=== PATIENT | female | born 1990 | race Caucasian/White ===

== ENCOUNTER → 2018-12-20 | Outpatient (REF) | payer OTHER ==
[2018-12-20 19:42] LABS: CHLAMYDIA DNA AMPLIFICATION NEGATIVE (NEGATIVE); GC DNA AMPLIFICATION NEGATIVE (NEGATIVE)
== END ==
LOC: M LAB REF 17:13
PROVIDERS: ATTEND Advanced Practice Midwife
DX: Z34.81 Encounter for supervision of other normal pregnancy, first trimester (principal); Z3A.00 Weeks of gestation of pregnancy not specified

== ENCOUNTER → 2019-02-03 | Outpatient (CLI) | payer OTHER ==
--- NOTE | 2019-02-03 14:41 | REP ---
OB ULTRASOUND: Real-time sonographic evaluation of the gravid uterus is performed. There is a single living intrauterine gestation. Estimated gestational age is 20 weeks 2 days based on today's ultrasound. EDC 06/21/2019. BPD 48 mm = 20 weeks 4 days, 57th percentile HC 174 mm = 19 weeks 6 days, 40th percentile AC 150 mm = 20 weeks 2 days, 50th percentile Femur length 33 mm = 20 weeks 3 days, 55th percentile HC/AC ratio 1.16 within normal range. Estimated weight 346 grams, 49th percentile. Cervix is closed and measures 5.3 cm in length. heart rate 141 beats per minute. SEEN/GROSSLY UNREMARKABLE Lateral ventricles Yes Posterior fossa No Upper lip Yes Four-chamber heart Yes LVOT Yes RVOT Yes Stomach Yes Cord insertion Yes Three vessel cord Yes Kidneys Yes Bladder Yes Spine Yes position: Vertex. Placenta: Anterior and grade 0 with no previa or abruption. Amniotic fluid: Within normal limits. Electronically Signed by Tre Rod MD 02/03/2019 04:55 P
== END ==
LOC: M RAD 12:50
PROVIDERS: ATTEND Advanced Practice Midwife
DX: Z34.82 Encounter for supervision of other normal pregnancy, second trimester (principal); Z3A.20 20 weeks gestation of pregnancy

== ENCOUNTER → 2019-02-21 | Outpatient (CLI) | payer BC ==
--- NOTE | 2019-02-21 19:12 | REP ---
Clinical: Anatomical evaluation. Comparison: 02/03/2019 . Findings: Examination demonstrates a single live intrauterine in cephalic presentation. motion is identified by technologist. Placenta is noted anterior and grade zero without evidence for placenta previa or abruption. Amniotic fluid volume is normal. Cervix measures 3.5 cm in length and appears closed. No evidence for nuchal cord. Gestational age by LMP 22 weeks 4 days with GRACE 06/23/2019 . Gestational age by current measurements 22 weeks 4 days with GRACE 06/23/2019 . FHR equals 149 beats per minute. Estimated weight 513 grams ( 43rd percentile). Anatomical assessment demonstrates normal structures including cerebellum/posterior fossa. Impression: Single live intrauterine in cephalic presentation demonstrating appropriate interval growth. 2. In conjunction with prior examination anatomical assessment is complete and normal. Electronically Signed by Aries Campos MD 02/21/2019 07:03 P
== END ==
LOC: M RAD 17:06
PROVIDERS: ATTEND Advanced Practice Midwife
DX: Z34.82 Encounter for supervision of other normal pregnancy, second trimester (principal); Z36.89 Encounter for other specified antenatal screening; Z3A.22 22 weeks gestation of pregnancy

== ENCOUNTER → 2019-03-16 | Outpatient (CLI) | payer BC ==
[2019-03-16 17:59] LABS: HEMATOCRIT 39.7 % (36.0-47.0); HEMOGLOBIN 12.5 g/dl (12.0-15.5); MEAN CORPUSCULAR HEMOGLOBIN 30.3 pg (27.0-33.0); MEAN CORPUSCULAR HGB CONC 31.5 g/dl (32.0-36.5); MEAN CORPUSCULAR VOLUME 96.4 fl (80.0-96.0); PLATELET COUNT, AUTOMATED 200 10^3/uL (150-450); RED BLOOD COUNT 4.12 10^6/uL (4.00-5.40); WHITE BLOOD COUNT 9.6 10^3/uL (4.0-10.0)
== END ==
LOC: M PLALAB 12:44
PROVIDERS: ATTEND Advanced Practice Midwife
DX: Z34.82 Encounter for supervision of other normal pregnancy, second trimester (principal); Z3A.00 Weeks of gestation of pregnancy not specified

== ENCOUNTER → 2019-05-19 | Outpatient (REF) | payer BC | LOC: M SFHCWAGY 16:40 | PROVIDERS: ATTEND Advanced Practice Midwife | DX: Z34.93 Encounter for supervision of normal pregnancy, unspecified, third trimester (principal); Z3A.00 Weeks of gestation of pregnancy not specified ==

== ENCOUNTER 2019-06-22 22:43 | Inpatient (IN) | payer BC ==
[~2019-06-22] VITALS: Ht 162.6 cm; Wt 87.8 kg
[2019-06-22] MEDS ORDERED: PRENTAB9 PO (23:05)
[2019-06-22 23:10] VITALS: BP 120/87
[2019-06-22] MEDS ORDERED: LR 1,000 ML IV SCH (23:27)
[2019-06-22] MEDS ORDERED: OXYTOCIN DRIP 30 UNITS in IV 1 EA IV SCH (23:30)
--- NOTE | 2019-06-23 00:07 | HPEPDOC ---
Obstetrical History & Physical General Date of Admission History of Present Illness Yajaira is a 29 year old female at 40.0 weeks EGA with an GRACE of 06/22/2019 by LMP of 09/15/18 confirmed by first trimester ultrasound. She presents complaining of contractions that started around 8 PM and have been consistently 4 minutes apart and lasting for about a minute. She denies leakage of fluid or bloody discharge. She reports good movement. Age: 29 : 2 Term: 1 Pre-term: 0 Abortions: 0 Livin Care Care: Good Care Dating Final EDC: June 22, 2019 Past Medical History Past Obstetrical History : Past Obstetrical History: Primgravida (07/2010) Gestation: 41.1 Type of Delivery: Spontaneous Vaginal Del. Sex of : Female Weight of Infant (grams): 3685 Complications: No PRODUCTION EXPERT History: No pertinent history Past Medical History Surgical History: Denies/None Family History Family History HTN, thyroid Social History Marital Status: Family situation: Spouse/partner home Psychosocial History: No pertinent psych hx * Smoker: non-smoker Alcohol: Denies Drugs: denies Allergies Coded Allergies: No Known Allergies (Verified , 07/29/10) Medications Scheduled No.137/Iron/Folic Acd ( Vitamin Tablet) 1 Each Tablet, 1 TAB PO DAILY Physical Examination Physical Examination GENERAL: Alert and oriented times three. BREAST: . ABDOMEN: Gravid and non-tender to touch. FETUS: Is vertex (VTX) by sterile vaginal examination (SVE), fetus is vertex (VTX) by [place]. HEART RATE: Regular rate and rhythm. LUNGS: Clear to auscultation (CTA). EXTREMITIES: No edema. No clonus. Deep tendon reflexes (DTRs) +2. Vital Signs/I&O Vital Signs Date Time Temp Pulse Resp B/P (MAP) Pulse Ox O2 Delivery O2 Flow Rate FiO2 06/22/19 23:10 98 120/87 (98) 06/22/19 23:06 98.0 Pertinent Laboratoy Data Blood Type: A- RBC Antibody Screen: Negative HIV: Negative Hepatitis B: Negative Hepatitis C: Negative Rapid Plasma Reagin: Nonreactive Rubella: Nonreactive (equivocal) Chlamydia/Gonorrhea: Negative Group B Streptococcus: Negative Glucose Tolerance Test: 82 Other Ultrasounds 02/03/19: SIUP with EGA 20.2, Anterior and grade 0 placenta without previa or abruption. 02/21/19: Single live intrauterine in cephalic presentation demonstrating appropriate interval growth. In conjunction with prior examination anatomical assessment is complete and normal. Vaginal Examination Dilation: 4 cm Effacement: 80% Station: -2 Cervical Consistency: Soft Cervical Position: Posterior Presentation: Cephalic presentation Position: Vertex (occiput) Assessment Heart Rate (FHR): 150 Variability: Moderate Accelerations: Positive Decelerations: None Tocometer Contractions: Yes Frequency: every 3-7 min. Assessment/Plan Assessment Yajaira is a 29-year-old (G)2 para (P)1-0-0-1 at 40.0 weeks by LMP confirmed by first trimester ultrasound. Presents to Labor and Delivery (L&D) complaining of contractions. Plan Admit and orient. 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 Diet: Regular. Group B Streptococcus (GBS) negative. Labs and intravenous (IV) per unit protocol. Counseled on potential augmentation of labor with Pitocin. Anticipate normal spontaneous delivery (). C-S as appropriate. GME ATTESTATION GME ATTESTATION My faculty preceptor for this patient encounter was physically present during the encounter and was fully available. All aspects of the patient interview, examination, medical decision making process, and medical care plan development were reviewed and approved by the faculty preceptor. The faculty preceptor is aware and concurs with the plan as stated in the body of this note and will attest to such by his/her cosignature. POLLY KEVIN D.O. June 23, 2019 00:07
[2019-06-23 00:28] LABS: HEMATOCRIT 39.2 % (36.0-47.0); HEMOGLOBIN 12.9 g/dl (12.0-15.5); MEAN CORPUSCULAR HEMOGLOBIN 30.1 pg (27.0-33.0); MEAN CORPUSCULAR HGB CONC 32.9 g/dl (32.0-36.5); MEAN CORPUSCULAR VOLUME 91.4 fl (80.0-96.0); PLATELET COUNT, AUTOMATED 156 10^3/uL (150-450); RED BLOOD COUNT 4.29 10^6/uL (4.00-5.40)
[2019-06-23] MEDS ORDERED: BUTORPHANOL 2 MG/ML INJ (J0595) IV ONE (00:45)
[2019-06-23] MEDS ORDERED: PROMETHAZINE INJ 25 MG/ML VIAL (J2550) IV ONE (00:45)
--- NOTE | 2019-06-23 05:33 | IPNPDOC ---
Text Note Date of Service The patient was seen on 06/23/19. NOTE Subjective: Was able to rest some with Stadol and Phenergan. Feeling more discomfort with contractions and having an urge to push. Objective: General: uncomfortable Abdomen: gravid SVE: 6/90/-1 FHR: 140 bpm, mod variability, accels, no decels TOCO: ctx q3 minutes AROM with clear fluid Assessment: Yajaira is a 29-year-old (G)2 para (P)1-0-0-1 at 40.0 weeks by LMP confirmed by first trimester ultrasound. Presented to Labor and Delivery (L&D) 06/22/19 complaining of contractions. Plan: Stadol/phenergan for coping AROM with clear fluid Status Reassuring Anticipate Vaginal Delivery VS,Fishbone, I+O VS, Fishbone, I+O Laboratory Tests 06/23/19 00:23 Vital Signs Date Time Temp Pulse Resp B/P (MAP) Pulse Ox O2 Delivery O2 Flow Rate FiO2 06/23/19 02:19 20 06/22/19 23:10 98 120/87 (98) 06/22/19 23:06 98.0 GME ATTESTATION GME ATTESTATION My faculty preceptor for this patient encounter was physically present during the encounter and was fully available. All aspects of the patient interview, examination, medical decision making process, and medical care plan development were reviewed and approved by the faculty preceptor. The faculty preceptor is aware and concurs with the plan as stated in the body of this note and will attest to such by his/her cosignature. POLLY KEVIN D.O. June 23, 2019 05:33
[2019-06-23] MEDS ORDERED: OXYTOCIN 30 UNITS IN 0.9% NaCl 500ML IV BAG (J2590) As Ordered ONE (05:38)
[2019-06-23] MEDS ORDERED: IBUPROFEN 600 MG TAB PO PRN (06:45)
[2019-06-23] MEDS ORDERED: ACETAMINOPHEN TAB 650MG DOSE (2X325MG) PO PRN (06:45)
[2019-06-23] MEDS ORDERED: DOCUSATE SODIUM 100 MG CAP PO PRN (06:45)
[2019-06-23] MEDS ORDERED: OXYTOCIN DRIP 30 UNITS in IV 1 EA IV ONE (06:45)
[2019-06-23] MEDS ORDERED: IBUPROFEN 800 MG TAB PO PRN (06:45)
[2019-06-23] MEDS ORDERED: ONDANSETRON 4MG/2ML VIAL IV PRN (06:45)
[2019-06-23] MEDS ORDERED: RHOGAM 300 MCG (1500 IU) INJ (J2790) IM SCH (06:45)
[2019-06-23] MEDS ORDERED: DIBUCAINE 1% OINTMENT 30GM TOP PRN (06:45)
[2019-06-23] MEDS ORDERED: LIDOCAINE 1% MDV 20ML VIAL INFIL ONE (06:45)
[2019-06-23] MEDS ORDERED: METHYLERGONOVINE MALEATE 0.2 MG TAB PO PRN (06:45)
[2019-06-23] MEDS ORDERED: ACETAMINOPHEN 500 MG TAB PO PRN (06:45)
[2019-06-23] MEDS ORDERED: MEASLES,MUMPS,RUBELLA VACCINE INJ (MMR-II) (90707) SC SCH (06:45)
[2019-06-23] MEDS: PRENATAL VITAMINS CHEWABLE TABLET PO SCH (09:00)
[2019-06-23 10:30] VITALS: BP 125/77
[2019-06-23 18:00] VITALS: BP 109/67
[2019-06-24 05:53] VITALS: BP 113/75
--- NOTE | 2019-06-24 07:21 | IPNPDOC ---
Text Note Date of Service The patient was seen on 06/24/19. NOTE PP #1 Feels well. Adequate pain management. Voiding VSS, afebrile, normotensive Breasts soft, nipples intact Fundus firm, NT Lochia rubra scant without odor Perineum intact PP #1 Routine care. Anticipate D/C in am VS,Fishbone, I+O VS, Fishbone, I+O Vital Signs Date Time Temp Pulse Resp B/P (MAP) Pulse Ox O2 Delivery O2 Flow Rate FiO2 06/24/19 05:53 97.7 73 18 113/75 (88) I&O- Last 24 Hours up to 6 AM 06/24/19 06:00 Intake Total 900 ml Output Total 1100 ml Balance -200 ml Poonam Kaur CNM June 24, 2019 07:21
[2019-06-24] MEDS: PRENATAL VITAMINS CHEWABLE TABLET PO SCH (09:11)
--- NOTE | 2019-06-24 20:49 | DN ---
DATE: 06/22/2019 PREDELIVERY DIAGNOSIS: A 40-1/7 weeks gestation, labor. POSTDELIVERY DIAGNOSIS: Delivered. PROCEDURE: Spontaneous vaginal delivery. TRAVEL PHYSICAL THERAPIST: Dr. Ruben Sanchez ASSISTANCE: Erin Corado D.O. ANESTHESIA: None. ESTIMATED BLOOD LOSS: 200 mL. FINDINGS: An 8-pound 13-ounce female infant, scores 8 and 9. DELIVERY SUMMARY: After a short second stage of approximately 10 minutes, the patient had spontaneous delivery of an 8-pound 13-ounce female infant with no delivery anesthesia. There was no nuchal cord. The shoulders delivered with ease. The was handed to the mother. The cord was doubly clamped and cut. The placenta delivered spontaneously and appeared to be intact. The patient received intravenous (IV) Pitocin immediately after delivery of the placenta. A small second-degree laceration was repaired with 3-0 Rapide Vicryl under local anesthesia in the usual fashion. Sponge and needle counts were correct.
== END 2019-06-24 13:30 | disposition home or self-care (01) | DRG 560 ==
LOC: M LDO 22:43 → M LDI 23:19 → M OBS 06-23 10:23
PROVIDERS: ADMIT Specialist; ATTEND Specialist
PROC: 10E0XZZ Delivery of Products of Conception, External Approach (ICD-10-PCS; principal; 2019-06-22)
PROC: 0HQ9XZZ Repair Perineum Skin, External Approach (ICD-10-PCS; 2019-06-22)
DX: O48.0 Post-term pregnancy (principal); O70.1 Second degree perineal laceration during delivery; Z37.0 Single live birth; Z3A.40 40 weeks gestation of pregnancy

== ENCOUNTER → 2023-11-29 | Outpatient (REF) | payer BC ==
[~2023-11-29] MED LIST: PRENTAB9 PO
[2023-12-02 14:42] LABS: HPV APTIMA Not Detected (Not Detected)
== END ==
LOC: M SFHCWAGY 14:55
PROVIDERS: ATTEND Advanced Practice Midwife
DX: Z12.4 Encounter for screening for malignant neoplasm of cervix (principal); R87.610 Atypical squamous cells of undetermined significance on cytologic smear of cervix (ASC-US)
CPT/HCPCS: 87624; G0123